=== PATIENT | female | born 1995 | race Caucasian/White ===

== ENCOUNTER 2016-12-12 19:03 | Emergency (ER) | payer MEDICAID ==
[~2016-12-12] VITALS: Ht 160 cm; Wt 99.0 kg
[~2016-12-12 19:03] MED LIST: ACYC-113 PO; ACYC-114 PO; DOCU-30 PO; HYDR-3240 PO; IBUP-1222 PO; IBUP800T PO; OXYC-302 PO; PREN1TAB60 PO
[2016-12-12 19:57] LABS: HEMOGLOBIN 17.2 g/dL (11.7-16.4)
[2016-12-12 20:07] LABS: BLOOD UREA NITROGEN 19 mg/dL (7-18)
[2016-12-12] MEDS ORDERED: SODIUM CHLORIDE FLUSH 10ML SYR IVF ONE (20:30)
[2016-12-12] MEDS ORDERED: SODIUM CHLORIDE 0.9% 1,000ML IVBOLUS ONE (20:30)
[2016-12-12 20:48] VITALS: BP 138/93
[2016-12-12] MEDS ORDERED: OMNIPAQUE 350 MG/ML, 100ML BOTTLE ONE (21:19)
== END 2016-12-12 21:46 | disposition home or self-care (01) ==
LOC: ED 21:45
DX: E86.0 Dehydration (principal); J20.8 Acute bronchitis due to other specified organisms; N28.9 Disorder of kidney and ureter, unspecified
CPT/HCPCS: 36415; 71020; 71275; 80048; 84703; 85025; 85379; 93005; 96360; 99285; J7030; Q9967